=== PATIENT | female | born 1960 | race Two or more races ===

== ENCOUNTER → 2016-10-09 | Outpatient (CLI) | payer MEDICAID ==
[~2016-10-09] VITALS: Ht 167.6 cm; Wt 99.8 kg
[~2016-10-09] MED LIST: NITROGLYCERIN 0.4MG/DOSE SPRAY 4.9GM SL ONE
== END | disposition home or self-care (01) ==
LOC: HDHVI->DVH 09:36
PROVIDERS: ATTEND Internal Medicine Cardiovascular Disease
DX: R07.9 Chest pain, unspecified (principal); I10 Essential (primary) hypertension
CPT/HCPCS: 78452; 93017; 93306; 96374; A9500